=== PATIENT | female | born 1950 | race Caucasian/White ===

== ENCOUNTER 2018-08-09 10:43 | Day surgery (SDC) | payer MEDICARE ==
[~2018-08-09] VITALS: Ht 160 cm; Wt 73.1 kg
[2018-08-09] VITALS (10 sets, daily range): BP systolic 103–160; BP diastolic 59–79
[2018-08-09] MEDS ORDERED: sod bicarbonate 150mEq in D5W 1,150 ML IV ONE (11:00)
[2018-08-09] MEDS ORDERED: diphenhydrAMINE 25mg capsule PO PRN (11:00)
[2018-08-09] MEDS ORDERED: ATOR20TA PO (11:23)
[2018-08-09] MEDS ORDERED: NABU750T2 PO (11:23)
[2018-08-09] MEDS ORDERED: ASPI-1053 PO (11:23)
[2018-08-09] MEDS ORDERED: LISI10TA4 PO (11:23)
[2018-08-09] MEDS ORDERED: LORA10TA61 PO (11:23)
[2018-08-09] MEDS ORDERED: NITR0.4T51 SL (11:23)
[2018-08-09] MEDS ORDERED: MULT-38 PO (11:23)
[2018-08-09] MEDS ORDERED: ACET-2119 PO (11:23)
[2018-08-09] MEDS ORDERED: LEVO50TA66 PO (11:23)
[2018-08-09] MEDS ORDERED: OMEG-92 PO (11:23)
[2018-08-09] MEDS ORDERED: OMEP40CA37 PO (11:23)
[2018-08-09] MEDS ORDERED: ERGO400C PO (11:23)
[2018-08-09] MEDS ORDERED: ANAS1TAB10 PO (11:23)
[2018-08-09] MEDS ORDERED: MULT-977 PO (11:23)
[2018-08-09 11:43] LABS: BASOPHILS % (AUTO) 0.4 % (0-1); EOSINOPHILS # (AUTO) 0.2 X10'3 (0-0.9); EOSINOPHILS % (AUTO) 4.7 % (0-6); HEMATOCRIT 38.6 % (35.0-45.0); HEMOGLOBIN 12.9 g/dl (12.0-16.0); LYMPHOCYTES # (AUTO) 1.2 X10'3 (1.1-4.8); LYMPHOCYTES % (AUTO) 23.3 % (21-51); MEAN CORPUSCULAR HEMOGLOBIN 28.9 PG (27.0-31.0); MEAN CORPUSCULAR HGB CONC 33.3 % (33.0-36.5); MEAN CORPUSCULAR VOLUME 86.9 FL (78-98); MEAN PLATELET VOLUME 7.8 FL (7.4-10.4); MONOCYTES # (AUTO) 0.3 X10'3 (0-0.9); MONOCYTES % (AUTO) 6.3 % (2-12); NEUTROPHILS # (AUTO) 3.4 X10'3 (1.8-7.7); NEUTROPHILS % (AUTO) 65.3 % (42-75); PLATELET COUNT 290 X10'3 (140-440); RED BLOOD COUNT 4.44 X10'6 (4.20-5.60); RED CELL DISTRIBUTION WIDTH 15.1 % (11.5-14.5); WHITE BLOOD COUNT 5.3 X10'3 (4.5-11.0)
[2018-08-09] MEDS ORDERED: normal saline 1000ml 1,000 ML IV SCH (11:45)
[2018-08-09 11:51] LABS: ALBUMIN 3.8 G/DL (3.4-5.0); ANION GAP 7 (8-16); BLOOD UREA NITROGEN 17 MG/DL (7-18); BUN/CREATININE RATIO 17.2 (6.6-38.0); CALCIUM 9.1 MG/DL (8.5-10.1); CHLORIDE 106 MMOL/L (99-107); CREATININE 0.99 MG/DL (0.40-0.90); GLUCOSE 103 MG/DL (70-104); POTASSIUM 3.9 MMOL/L (3.5-5.1); SODIUM 142 MMOL/L (135-145); TOTAL CARBON DIOXIDE 29.2 MMOL/L (24-32); eGFR 56 ML/MIN
[2018-08-09 11:56] LABS: PARTIAL THROMBOPLASTIN TIME 27 SECONDS (22-32)
[2018-08-09] MEDS ORDERED: iohexol 350MG/ML 100ml bottle IV ONE (12:45)
[2018-08-09] MEDS ORDERED: LIDOcaine 1% 30ml preserv. free vial ONE (12:45)
[2018-08-09] MEDS ORDERED: iohexol 350 MG/ML 50ML vial IV ONE (12:45)
[2018-08-09] MEDS ORDERED: midazolam 2 mg/2 ml injection ONE (13:16)
[2018-08-09] MEDS ORDERED: fentaNYL/PF 50MCG/1 ML 2ML syringe ONE (13:16)
== END 2018-08-09 17:00 | disposition home or self-care (01) ==
LOC: SSTAY O 10:43
PROVIDERS: ATTEND Internal Medicine Cardiovascular Disease
DX: R94.39 Abnormal result of other cardiovascular function study (principal); R07.89 Other chest pain; I99.8 Other disorder of circulatory system; Z96.651 Presence of right artificial knee joint; Z82.49 Family history of ischemic heart disease and other diseases of the circulatory system
CPT/HCPCS: 36415; 80048; 83735; 85025; 85610; 85730; 93005; 93458; 99152; 99153; A6257; J1644; J2250; J3010; J3490; J7030; Q0163; Q9967; A4620; C1760; C1769; C1894

== ENCOUNTER 2022-12-04 10:19 | Day surgery (SDC) | payer MEDICARE ==
[2022-12-02 15:40] LABS: BASOPHILS % (AUTO) 0.8 % (0-1); EOSINOPHILS # (AUTO) 0.2 X10'3 (0-0.9); EOSINOPHILS % (AUTO) 3.4 % (0-6); MEAN CORPUSCULAR HEMOGLOBIN 28.2 PG (27.0-31.0); MEAN CORPUSCULAR VOLUME 85.5 FL (78-98); MONOCYTES # (AUTO) 0.4 X10'3 (0-0.9); MONOCYTES % (AUTO) 7.5 % (2-12); NEUTROPHILS # (AUTO) 3.2 X10'3 (1.8-7.7); NEUTROPHILS % (AUTO) 67.3 % (42-75); PRE OP HEMATOCRIT 37.5 % (35.0-45.0); PRE OP HEMOGLOBIN 12.4 g/dL (12.0-16.0); PRE OP PLATELET COUNT 241 X10'3 (140-440); RED BLOOD COUNT 4.39 X10'6 (4.20-5.60); RED CELL DISTRIBUTION WIDTH 14.7 % (11.5-14.5)
[2022-12-02 16:10] LABS: ALBUMIN/GLOBULIN RATIO 1.2 (1.1-1.5); ALKALINE PHOSPHATASE 96 IU/L (46-116); BLOOD UREA NITROGEN 21 MG/DL (7-18); CALCIUM 9.2 MG/DL (8.5-10.1); CHLORIDE 105 MMOL/L (99-107); CREATININE 1.05 MG/DL (0.40-0.90); PRE OP ALT 40 U/L (30-65); PRE OP ANION GAP 9 (8-16); PRE OP AST 39 U/L (10-37); PRE OP BILIRUB, TOTAL 0.6 MG/DL (0.0-1.0); PRE OP GLUCOSE 133 MG/DL (70-104); PRE OP POTASSIUM 3.7 MMOL/L (3.4-5.1); PRE OP SODIUM 140 MMOL/L (135-145); TOTAL CARBON DIOXIDE 26.2 MMOL/L (24-32); TOTAL PROTEIN 7.4 G/DL (6.4-8.2); eGFR 52 ML/MIN
[2022-12-02 16:26] LABS: CLARITY,URINE CLEAR (Clear); COLOR,URINE YELLOW (Yellow); GLUCOSE, URINE NEGATIVE (Neg); KETONES,URINE NEGATIVE (Neg); LEUKOCYTE ESTERASE ,URINE NEGATIVE (Neg); NITRITES, URINE NEGATIVE (Neg); OCCULT BLOOD,URINE NEGATIVE (Neg); PH,URINE 5.5 (4.8-8.0); PROTEIN,URINE NEGATIVE (Neg); UROBILINOGEN,URINE 0.2 E.U/dL (0.2-1.0)
[2022-12-02 16:32] LABS: UA COLLECTION TYPE CLN CATCH MIDSTREAM
[~2022-12-04] VITALS: Ht 160 cm; Wt 69.9 kg
[2022-12-04] VITALS (11 sets, daily range): BP systolic 132–153; BP diastolic 63–84
[~2022-12-04 10:19] MED LIST: ATOR-2 PO; CALCIUM VITAMIN D PO; CRAN450T4 PO; EZET10TA48 PO; GABA300C PO; HYDR-3686 PO; LEVO50TA66 PO; LISI10TA27 PO; LORA10TA61 PO; MULT-1130 PO; MULT-38 PO; NABU-141 PO; OMEG-133 PO; OMEP40CA21 PO; PHYT1CAP5 PO; TURM500C4 PO; ceFAZolin inj. 2,000 MG in dextrose 5%-water 100 ML IV ONE; famotidine 20mg tablet PO ONE; ringers solution, lacted 1,000 ML IV SCH
[2022-12-04] MEDS ORDERED: scopolamine 1mg/72 hr patch TD ONE (11:40)
[2022-12-04] MEDS ORDERED: midazolam 1 mg/ML 2ml injection ONE (12:38)
[2022-12-04] MEDS ORDERED: fentaNYL /PF 50mcg/ml 5ml ampule ONE (12:39)
[2022-12-04] MEDS ORDERED: LIDOcaine 2% (20mg/ml) 5ml vial ONE (13:19)
[2022-12-04] MEDS ORDERED: dexamethasone sod phosphate 10mg/ml inj ONE (13:19)
[2022-12-04] MEDS ORDERED: rocuronium 10mg/ml inj IV ONE (13:19)
[2022-12-04] MEDS ORDERED: acetaminophen 1000 MG/100ml vial IV ONE (13:19)
[2022-12-04] MEDS ORDERED: ePHEDrine 50MG/ML INJ. ONE (13:19)
[2022-12-04] MEDS ORDERED: glycopyrrolate 0.2mg/ml inj ONE (13:19)
[2022-12-04] MEDS ORDERED: sevoflurane 250ml liquid IH ONE (13:19)
[2022-12-04] MEDS ORDERED: ondansetron/PF 4mg/2ml inj ONE (13:19)
[2022-12-04] MEDS ORDERED: propofol 10mg/ml 20ml vial IV ONE (13:19)
[2022-12-04] MEDS ORDERED: neostigmine methylsulfate 1 MG/ML 10ml vial ONE (13:19)
[2022-12-04] MEDS ORDERED: HYDROmorphone/PF 0.2 MG/ML SYRINGE IV PRN ×2 (15:15)
[2022-12-04] MEDS ORDERED: ringers solution, lacted 1,000 ML IV SCH (15:15)
[2022-12-04] MEDS ORDERED: morphine 2 MG/ML inj. syringe IV PRN (15:15)
[2022-12-04] MEDS ORDERED: ondansetron/PF 4mg/2ml inj IV PRN (15:15)
[2022-12-04] MEDS ORDERED: bacitracin 15gm ointment TP ONE (16:05)
--- NOTE | 2022-12-04 16:23 | NUR ---
Received from OR via [facility] , accompanied by Anesthesiologist ROMAN and report given by Anesthesiolgist. PATIENT WITH 20G PIV IN RIGHT FOREARM RUNNING LR AT 100. DENIES PAIN AT THIS TIME TO RIGHT FOOT AND ANKLE. + CSM TO TOES ON RIGHT FOOT. +PWD. PATIENT WITH 10L MASK ON WITH 100%SATURATIONS. VSS. Addendum: 12/04/22 at 1640 by Benito Daniels RN, RN Amended: Links added.
--- NOTE | 2022-12-04 17:53 | NUR ---
PATIENT HAS MET ALL CRITERIA FOR TRANSFER TO HOME. CAST ELEVATOR PROVIDED. SPOUSE GAVE RIDE HOME. GLASSES AND ALL BELONGINGS SENT WITH PATIENT. PAIN TOLERABLE AND VSS. REINFORCED TOE BOX 2' RAIN. Addendum: 12/04/22 at 1832 by Benito Daniels RN, RN Amended: Links added.
== END 2022-12-04 17:53 | disposition home or self-care (01) ==
LOC: PAS 10:19
PROVIDERS: ATTEND Podiatrist Foot & Ankle Surgery
DX: M20.11 Hallux valgus (acquired), right foot (principal); M77.41 Metatarsalgia, right foot; M25.374 Other instability, right foot; G89.18 Other acute postprocedural pain; F41.9 Anxiety disorder, unspecified; M17.0 Bilateral primary osteoarthritis of knee; I10 Essential (primary) hypertension; M19.072 Primary osteoarthritis, left ankle and foot; M19.071 Primary osteoarthritis, right ankle and foot; K21.9 Gastro-esophageal reflux disease without esophagitis; Z90.710 Acquired absence of both cervix and uterus; Z98.890 Other specified postprocedural states; Z79.899 Other long term (current) drug therapy; Z79.82 Long term (current) use of aspirin; Z88.1 Allergy status to other antibiotic agents; Z88.2 Allergy status to sulfonamides; Z72.89 Other problems related to lifestyle; Z87.891 Personal history of nicotine dependence; Z85.3 Personal history of malignant neoplasm of breast
CPT/HCPCS: 20902; 28297; 28308; 28310; 36415; 64445; 64447; 73620; 76000; 80053; 81003; 82948; 85025; 93005; A6222; C1713; J0131; J0690; J1100; J1170; J2250; J2405; J2704; J2710; J3010; J3490; J7030; J7060; J7120; Z7506; Z7508; Z7512; A4618; A6253; A6449; A7000